=== PATIENT | female | born 2000 | race Caucasian/White ===

== ENCOUNTER 2018-07-13 20:48 | Emergency (ER) | payer MEDICAID ==
[~2018-07-13] VITALS: Wt 68.9 kg
[~2018-07-13 20:48] MED LIST: ACYC400T2 PO; ALBU18HF INHALATION; AMOX500C2 PO; HYDR-3498 PO; LEVA15HF6 IH; ONDA4TAB35 PO; PRED20TA PO
--- NOTE | 2018-07-14 00:31 | ERD ---
ER Documentation Chief Complaint Chief Complaint lower pelvic pain since AM; constant. no dysuria. diarrhea x3 last night. HPI 17-year-old female 3 months presents with lower left quadrant pain for the past 3 weeks. Denies dysuria, but states she has been having some yellow vaginal discharge and states that is painful when she has sex. Denies nausea, vomiting, diarrhea, back pain, fevers. Denies past medical history. Denies allergies. Denies medications. Denies surgeries. Denies alcohol, tobacco, drug use. Up to date on vaccines. ROS All systems reviewed and are negative except as per history of present illness. Medications Home Meds Active Scripts Cephalexin* (Keflex*) 500 Mg Capsule, 500 MG PO BID for UTI for 7 Days, CAP Prov:AMOR MUSTAFA 07/14/18 Albuterol Sulfate* (Ventolin HFA*) 18 Gm Hfa.aer.ad, 2 PUFF INHALATION Q4H, #1 INHALER Prov:JONATAN KOEHLER MD 09/10/15 Prednisone* (Prednisone*) 20 Mg Tab, 60 MG PO DAILY for 4 Days, TAB Prov:JONATAN KOEHLER MD 09/10/15 Amoxicillin* (Amoxicillin*) 500 Mg Cap, 500 MG PO TID for 7 Days, CAP Prov:VIDHI GRADY MD 03/29/15 Ondansetron Hcl* (Zofran* ODT) 4 mg -ODT Tab.disper, 4 MG PO Q6 PRN for NAUSEA AND/OR VOMITING, #20 TAB Prov:VIDHI GRADY MD 03/29/15 Hydrocodone Bit-Acetaminophen* (Rice*) 5-325 Mg Tab, 1 TAB PO Q6 PRN for PAIN, #20 TAB Prov:VIDHI GRADY MD 03/29/15 Prednisone* (Prednisone*) 20 Mg Tab, 40 MG PO DAILY for 5 Days, TAB Prov:TERRY CAMERON PA-C 03/18/15 Acyclovir* (Acyclovir*) 400 Mg Tablet, 400 MG PO 5 TIMES DAILY for 5 Days, TAB Prov:TERRY CAMERON PA-C 03/18/15 Reported Medications Levalbuterol* (Xopenex* HFA) 15 Gm Inha, 15 GM IH PRN 02/05/13 Allergies Allergies: Coded Allergies: No Known Allergy (Unverified , 09/10/15) PMhx/Soc Medical and Surgical Hx: pt denies Surgical Hx History of Surgery: No Anesthesia Reaction: No Hx Neurological Disorder: No Hx Respiratory Disorders: Yes (asthma) Hx Cardiac Disorders: No Hx Psychiatric Problems: No Hx Miscellaneous Medical Probl: No Hx Alcohol Use: No Hx Substance Use: No Hx Tobacco Use: No Smoking Status: Never smoker FmHx Family History: No diabetes, No coronary disease, No other Physical Exam Vitals Vital Signs Date Temp Pulse Resp B/P (MAP) Pulse Ox O2 O2 Flow FiO2 Time Delivery Rate 07/14/18 96.0 67 16 110/62 98 Room Air 03:08 (78) 07/13/18 98.0 98 22 110/61 98 20:56 (77) Physical Exam Const: No acute distress Head: Atraumatic Eyes: Normal Conjunctiva ENT: Normal External Ears, Nose and Mouth. Neck: Full range of motion. No meningismus. Resp: Clear to auscultation bilaterally Cardio: Regular rate and rhythm, no murmurs Abd: Soft, non tender, non distended. Normal bowel sounds Skin: No petechiae or rashes Back: No midline or flank tenderness Ext: No cyanosis, or edema Neur: Awake and alert Psych: Normal Mood and Affect Result Diagram: 07/14/18 0054 Results 24 hrs Laboratory Tests Test 07/14/18 00:49 07/14/18 00:54 Urine Color YELLOW Urine Clarity SLIGHTLY CLOUDY Urine pH 5.0 Urine Specific [facility] 1.030 Urine Ketones NEGATIVE mg/dL Urine Nitrite NEGATIVE mg/dL Urine Bilirubin NEGATIVE mg/dL Urine Urobilinogen 1+ mg/dL Urine Leukocyte Esterase 3+ Liana/ul Urine Microscopic RBC 8 /HPF Urine Microscopic WBC 120 /HPF Urine Squamous Epithelial Cells FEW /HPF Urine Mucus FEW /HPF Urine Hemoglobin NEGATIVE mg/dL Urine Glucose NEGATIVE mg/dL Urine Total Protein NEGATIVE mg/dl Chlamydia trachomatis RNA (TMA) NOT DETECTED Chlamydia/GC Comment SEE NOTE Neisseria gonorrhoeae RNA (TMA) NOT DETECTED White Blood Count 9.9 10^3/ul Red Blood Count 4.57 10^6/ul Hemoglobin 13.7 g/dl Hematocrit 41.2 % Mean Corpuscular Volume 90.2 fl Mean Corpuscular Hemoglobin 30.0 pg Mean Corpuscular Hemoglobin Concent 33.3 g/dl Red Cell Distribution Width 13.8 % Platelet Count 224 10^3/UL Mean Platelet Volume 12.3 fl Immature Granulocytes % 0.300 % Neutrophils % 50.1 % Lymphocytes % 39.0 % Monocytes % 5.5 % Eosinophils % 4.7 % Basophils % 0.4 % Nucleated Red Blood Cells % 0.0 /100WBC Immature Granulocytes # 0.030 10^3/ul Neutrophils # 4.9 10^3/ul Lymphocytes # 3.9 10^3/ul Monocytes # 0.5 10^3/ul Eosinophils # 0.5 10^3/ul Basophils # 0.0 10^3/ul Nucleated Red Blood Cells # 0.0 10^3/ul Current Medications Medications Dose Sig/Jimmy Start Time Status Last (Trade) Ordered Route PRN Stop Time Admin Dose Reason Admin 500 mg ONCE STAT 07/14/18 DC 07/14/18 Acetaminophen PO 00:32 00:45 (Tylenol 07/14/18 00:34 Tab) Procedures/MDM 17-year-old female 3 months presents with lower left quadrant pain for the past 3 weeks. Denies dysuria, but states she has been having some yellow vaginal discharge and states that is painful when she has sex. Denies nausea, vomiting, diarrhea, back pain, fevers. UA was performed and was positive for UTI. In addition, wet mount and GC were performed, both within normal limits. Patient prescribed Rx for Keflex. I have low suspicion for PID, complicated UTI, pyelonephritis, appendicitis, ovarian torsion, acute abdomen, incarcerated hernia, or any other emergent condition. Patient discharged with strict ER precautions. Patient advised to follow up with PMD. All questions answered at discharge. Departure Diagnosis: Primary Impression: UTI (urinary tract infection) Urinary tract infection type: site unspecified Hematuria presence: without hematuria Qualified Codes: N39.0 - Urinary tract infection, site not specified Condition: Gladys MOONAMOR Jul 14, 2018 00:31
[2018-07-14] MEDS ORDERED: ACETAMINOPHEN 500 MG TAB PO STA (00:32)
[2018-07-14] MEDS ORDERED: CEPH-443 PO (02:03)
[2018-07-14 03:08] VITALS: BP 110/62; PULSE 67; RESP 16
== END 2018-07-14 03:09 | disposition home or self-care (01) ==
LOC: FTE 20:48
DX: N39.0 Urinary tract infection, site not specified (principal); J45.909 Unspecified asthma, uncomplicated
CPT/HCPCS: 81001; 85025; 87086; 87210; 87220; 87591; Z7610; 99283